=== PATIENT | female | born 1995 | race Caucasian/White ===

== ENCOUNTER 2019-08-26 06:00 | Emergency (ER) | payer BC ==
[2019-08-26 06:11] VITALS: TEMP 97.4
[2019-08-26] MEDS ORDERED: SODIUM CHLORIDE 0.9% 1,000 ML IV STA ×2 (06:36)
[2019-08-26] MEDS ORDERED: PANTOPRAZOLE 40 MG/10 ML VIAL IVP STA (06:36)
[2019-08-26] MEDS ORDERED: KETOROLAC 30 MG/ML 1 ML VIAL IVP STA (06:36)
[2019-08-26] MEDS ORDERED: MORPHINE SULFATE 4 MG/ML SYRINGE IV STA (06:36)
[2019-08-26] MEDS ORDERED: ONDANSETRON 4 MG/2 ML VIAL IVP STA (06:36)
[2019-08-26] MEDS ORDERED: TAMSULOSIN 0.4 MG CAP.ER.24H PO STA (06:38)
--- NOTE | 2019-08-26 06:39 | ED ---
Abdominal Pain HPI - General Chief Complaint: Abdominal Pain Stated Complaint: Kidney Stone Time Seen by Provider: 08/26/19 06:18 Source: patient, RN notes reviewed, old records reviewed Mode of arrival: ambulatory Limitations: no limitations - History of Present Illness Initial Comments: Patient's a 23-year-old female presents emergency department today for evaluation for concern for left-sided flank pain. Symptoms woke her up this morning. Patient states that she's had no fevers or chills. History of kidney stones the past and feels similar to previous kidney stone. Last that she had was 5 years ago. Did not require lithotripsy or stenting. Does not have urologist. - Related Data Previous Rx's Medication Instructions Recorded Ondansetron Odt [Zofran ODT] 4 mg PO Q8HR PRN #15 tab 10/09/15 Cephalexin [Keflex] 500 mg PO Q6HR #28 cap 08/26/19 HYDROcodone/APAP 5-325MG [[place] 1 tab PO Q6HR PRN 3 Days #12 tab 08/26/19 5-325] Ketorolac [Toradol] 10 mg PO Q6HR #12 tab 08/26/19 Ondansetron HCl [Zofran] 4 mg PO Q8H PRN #12 tab 08/26/19 Tamsulosin [Flomax] 0.4 mg PO DAILY #7 cap 08/26/19 Allergies Allergy/AdvReac Type Severity Reaction Status Date / Time Penicillins Allergy Unknown Verified 08/26/19 06:11 Sulfa (Sulfonamide Allergy Unknown Verified 08/26/19 06:11 Antibiotics) Review of Systems ROS Statement: Those systems with pertinent positive or pertinent negative responses have been documented in the HPI. ROS Other: All systems not noted in ROS Statement are negative. Past Medical History Past Medical History: Thyroid Disorder History of Any Multi-Drug Resistant Organisms: None Reported Past Surgical History: No Surgical Hx Reported Past Psychological History: No Psychological Hx Reported Smoking Status: Never smoker Past Alcohol Use History: Rare Past Drug Use History: Marijuana General Exam - General Exam Comments Initial Comments: Alert and oriented 23-year-old female. No significant distress. Limitations: no limitations General appearance: alert, in no apparent distress Head exam: Present: atraumatic Eye exam: Present: normal appearance, PERRL, EOMI. Absent: scleral icterus, conjunctival injection, periorbital swelling ENT exam: Present: normal exam, mucous membranes moist Neck exam: Present: normal inspection. Absent: tenderness, meningismus, lymphadenopathy Respiratory exam: Present: normal lung sounds bilaterally. Absent: respiratory distress, wheezes, rales, rhonchi, stridor Cardiovascular Exam: Present: regular rate, normal rhythm, normal heart sounds. Absent: systolic murmur, diastolic murmur, rubs, gallop, clicks GI/Abdominal exam: Present: soft, tenderness (Left CVA tenderness) Extremities exam: Present: normal inspection, full ROM, normal capillary refill. Absent: tenderness, pedal edema, joint swelling, calf tenderness Back exam: Present: normal inspection Neurological exam: Present: alert, oriented X3, CN II-XII intact Psychiatric exam: Present: normal affect, normal mood Skin exam: Present: warm, dry, intact, normal color. Absent: rash Course Vital Signs 08/26/19 06:09 Temperature 97.4 F L Pulse Rate 81 Respiratory 17 Rate Blood Pressure 137/87 O2 Sat by Pulse 99 Oximetry Medical Decision Making - Medical Decision Making Patient is a 23-year-old female, who presents the ED for concern for left sided flank pain. Onset this morning. History of kidney stones. At this time patient's urinalysis shows significant hematuria and some white blood cells while. Urine culture be completed. Kidney function and blood work was otherwise unremarkable. Patient's underwent CT and pelvis without contrast, there is some concern for some hydronephrosis, left-sided ureter stone measuring possibly 3 mm at the left UVJ. Also some mention of possible appendicolith however Patient is no right-sided tenderness, no clinical concern for appendicitis. Patient at this time was given pain management, IV fluids. On reevaluation she is resting comfortably in bed. Discussed the Patient has had multiple retained renal stones. Discussed she can follow-up with urology and will discharge Patient with pain medicine, Flomax and Toradol. Also for the Patient on a short course of antibiotics. All questions were answered return parameters were discussed. - Lab Data Result diagrams: 08/26/19 06:36 08/26/19 06:36 Lab Results 08/26/19 08/26/19 08/26/19 Range/Units 06:36 06:36 06:36 WBC 10.5 (3.8-10.6) k/uL RBC 5.13 (3.80-5.40) m/uL Hgb 15.4 (11.4-16.0) gm/dL Hct 46.0 (34.0-46.0) % MCV 89.7 (80.0-100.0) fL MCH 29.9 (25.0-35.0) pg MCHC 33.4 (31.0-37.0) g/dL RDW 12.6 (11.5-15.5) % Plt Count 305 (150-450) k/uL Neutrophils % 58 % Lymphocytes % 32 % Monocytes % 4 % Eosinophils % 2 % Basophils % 0 % Neutrophils # 6.1 (1.3-7.7) k/uL Lymphocytes # 3.3 (1.0-4.8) k/uL Monocytes # 0.4 (0-1.0) k/uL Eosinophils # 0.3 (0-0.7) k/uL Basophils # 0.1 (0-0.2) k/uL PT (9.0-12.0) sec INR (<1.2) APTT (22.0-30.0) sec Sodium 137 (137-145) mmol/L Potassium 4.2 (3.5-5.1) mmol/L Chloride 104 (98-107) mmol/L Carbon Dioxide 20 L (22-30) mmol/L Anion Gap 13 mmol/L BUN 13 (7-17) mg/dL Creatinine 0.70 (0.52-1.04) mg/dL Est GFR (CKD-EPI)AfAm >90 (>60 ml/min/1.73 sqM) Est GFR (CKD-EPI)NonAf >90 (>60 ml/min/1.73 sqM) Glucose 144 H (74-99) mg/dL Calcium 9.9 (8.4-10.2) mg/dL Total Bilirubin 0.7 (0.2-1.3) mg/dL AST 20 (14-36) U/L ALT 14 (4-34) U/L Alkaline Phosphatase 69 (38-126) U/L Total Protein 7.9 (6.3-8.2) g/dL Albumin 4.7 (3.5-5.0) g/dL Amylase 43 (30-110) U/L Lipase 87 (23-300) U/L Urine Color Urine Appearance (Clear) Urine pH (5.0-8.0) Ur Specific [place] (1.001-1.035) Urine Protein (Negative) Urine Glucose (UA) (Negative) Urine Ketones (Negative) Urine Blood (Negative) Urine Nitrite (Negative) Urine Bilirubin (Negative) Urine Urobilinogen (<2.0) mg/dL Ur Leukocyte Esterase (Negative) Urine RBC (0-5) /hpf Urine WBC (0-5) /hpf Urine WBC Clumps (None) /hpf Ur Squamous Epith Cells (0-4) /hpf Urine Bacteria (None) /hpf Urine Mucus (None) /hpf Urine Yeast (Budding) (None) /hpf Urine HCG, Qual Not Detected (Not Detectd) 08/26/19 08/26/19 Range/Units 06:36 06:36 WBC (3.8-10.6) k/uL RBC (3.80-5.40) m/uL Hgb (11.4-16.0) gm/dL Hct (34.0-46.0) % MCV (80.0-100.0) fL MCH (25.0-35.0) pg MCHC (31.0-37.0) g/dL RDW (11.5-15.5) % Plt Count (150-450) k/uL Neutrophils % % Lymphocytes % % Monocytes % % Eosinophils % % Basophils % % Neutrophils # (1.3-7.7) k/uL Lymphocytes # (1.0-4.8) k/uL Monocytes # (0-1.0) k/uL Eosinophils # (0-0.7) k/uL Basophils # (0-0.2) k/uL PT 10.0 (9.0-12.0) sec INR 1.0 (<1.2) APTT 22.3 (22.0-30.0) sec Sodium (137-145) mmol/L Potassium (3.5-5.1) mmol/L Chloride (98-107) mmol/L Carbon Dioxide (22-30) mmol/L Anion Gap mmol/L BUN (7-17) mg/dL Creatinine (0.52-1.04) mg/dL Est GFR (CKD-EPI)AfAm (>60 ml/min/1.73 sqM) Est GFR (CKD-EPI)NonAf (>60 ml/min/1.73 sqM) Glucose (74-99) mg/dL Calcium (8.4-10.2) mg/dL Total Bilirubin (0.2-1.3) mg/dL AST (14-36) U/L ALT (4-34) U/L Alkaline Phosphatase (38-126) U/L Total Protein (6.3-8.2) g/dL Albumin (3.5-5.0) g/dL Amylase (30-110) U/L Lipase (23-300) U/L Urine Color Light Red Urine Appearance Cloudy H (Clear) Urine pH 5.5 (5.0-8.0) Ur Specific [place] 1.023 (1.001-1.035) Urine Protein 1+ H (Negative) Urine Glucose (UA) Negative (Negative) Urine Ketones Trace H (Negative) Urine Blood Large H (Negative) Urine Nitrite Negative (Negative) Urine Bilirubin Negative (Negative) Urine Urobilinogen <2.0 (<2.0) mg/dL Ur Leukocyte Esterase Small H (Negative) Urine RBC >182 H (0-5) /hpf Urine WBC 27 H (0-5) /hpf Urine WBC Clumps Many H (None) /hpf Ur Squamous Epith Cells 10 H (0-4) /hpf Urine Bacteria Rare H (None) /hpf Urine Mucus Few H (None) /hpf Urine Yeast (Budding) Rare H (None) /hpf Urine HCG, Qual (Not Detectd) - Radiology Data Radiology results: report reviewed Moderate left hydroureter nephrosis of the proximal and mid left ureter. However distal left ureter is nondistended He actually followed. It is possible 3 mm distal left ureter calculus proximal to left UVJ versus phlebolith. Punctate calcification near the distal appendix which could be appendicolith are located within adjacent small bowel. Appendix cannot be from the small bowel with for contrast. No secondary findings for acute appendicitis. Bilateral nonobstructing renal colliculi. Follicular cystic changes in both ovaries. Disposition Clinical Impression: Ureteral calculus, left Disposition: HOME SELF-CARE Condition: Good Instructions (If sedation given, give patient instructions): Ureteral Stones (ED) Additional Instructions: Please use medication as discussed. Please follow up with family doctor if symptoms have not improved over the next two days. Please return to the emergency room if your symptoms increase or worsen or for any other concerns. Prescriptions: Tamsulosin [Flomax] 0.4 mg PO DAILY #7 cap Cephalexin [Keflex] 500 mg PO Q6HR #28 cap HYDROcodone/APAP 5-325MG [[place] 5-325] 1 tab PO Q6HR PRN 3 Days #12 tab PRN Reason: Pain Ketorolac [Toradol] 10 mg PO Q6HR #12 tab Ondansetron HCl [Zofran] 4 mg PO Q8H PRN #12 tab PRN Reason: Nausea And Vomiting Is patient prescribed a controlled substance at d/c from ED?: Yes If prescribed controlled substance>3 days was MAPS reviewed?: Prescribed <3 Days If opioid is for acute pain is fill amount 7 days or less?: Yes If Rx opioid, was Start Talking consent form obtained?: Yes Referrals: None,Stated [Primary Care Provider] - 1-2 days Darshan Phillips MD [STAFF PHYSICIAN] - 1-2 days Time of Disposition: 08:22
[2019-08-26 06:50] LABS: Basophils # (A) 0.1 k/uL (0-0.2); Basophils % (A) 0 %; Eosinophils # (A) 0.3 k/uL (0-0.7); Eosinophils % (A) 2 %; HGB 15.4 gm/dL (11.4-16.0); Lymphocytes # (A) 3.3 k/uL (1.0-4.8); Lymphocytes % (A) 32 %; MCH 29.9 pg (25.0-35.0); MCHC 33.4 g/dL (31.0-37.0); MCV 89.7 fL (80.0-100.0); Monocytes # (A) 0.4 k/uL (0-1.0); Monocytes % (A) 4 %; Neutrophils # (A) 6.1 k/uL (1.3-7.7); Neutrophils % (A) 58 %; Platelet Count 305 k/uL (150-450); RBC 5.13 m/uL (3.80-5.40); RDW 12.6 % (11.5-15.5); WBC 10.5 k/uL (3.8-10.6)
[2019-08-26 06:58] LABS: Appearance,Urine Cloudy (Clear); Bacteria,Urine Rare /hpf; Bilirubin,Urine Negative (Negative); Blood,Urine Large (Negative); Budding Yeast,Urine Rare /hpf; Color,Urine Light Red; Glucose,Urine (UA) Negative (Negative); Ketones,Urine Trace (Negative); Leukocyte Esterase,Urine Small (Negative); Mucus,Urine Few /hpf; Nitrite,Urine Negative (Negative); PH, Urine 5.5 (5.0-8.0); Protein,Urine 1+ (Negative); RBC,Urine >182 /hpf (0-5); Specific Gravity,Urine 1.023 (1.001-1.035); Squamous Epithelial Cell,Urine 10 /hpf (0-4); Urobilinogen,Urine <2.0 mg/dL (<2.0); WBC,Urine 27 /hpf (0-5)
[2019-08-26 07:02] LABS: ALT 14 U/L (4-34); AST 20 U/L (14-36); African American GFR (CKD) >90 (>60 ml/min/1.73 sqM); Albumin 4.7 g/dL (3.5-5.0); Alkaline Phosphatase 69 U/L (38-126); Amylase 43 U/L (30-110); Anion Gap 13 mmol/L; Blood Urea Nitrogen 13 mg/dL (7-17); Calcium 9.9 mg/dL (8.4-10.2); Carbon Dioxide 20 mmol/L (22-30); Chloride 104 mmol/L (98-107); Glucose 144 mg/dL (74-99); Non-African American GFR(CKD) >90 (>60 ml/min/1.73 sqM); Partial Thromboplastin Time 22.3 sec (22.0-30.0); Potassium 4.2 mmol/L (3.5-5.1); Sodium 137 mmol/L (137-145); Total Bilirubin 0.7 mg/dL (0.2-1.3); Total Protein 7.9 g/dL (6.3-8.2)
--- NOTE | 2019-08-26 07:48 | CT ---
EXAMINATION TYPE: CT abdomen pelvis wo con DATE OF EXAM: 08/26/2019 COMPARISON: 11/20/2012 CT HISTORY: Kidney stone CT DLP: 447 mGycm Automated exposure control for dose reduction was used. TECHNIQUE: Helical acquisition of images was performed from the lung bases through the pelvis. FINDINGS: LUNG BASES: There is a 3 mm solid right basilar pulmonary nodule on image 1 of series 204 that is inc ompletely visualized. This is not seen on the prior of 11/20/2012, possibly due to slice selection. LIVER/GB: Unremarkable unenhanced morphology of the liver. No radiopaque gallstones. PANCREAS: No ductal dilatation. SPLEEN: No splenomegaly. ADRENALS: No nodularity or thickening. KIDNEYS: There is mild to moderate left hydroureteronephrosis within the proximal and mid left ureter . The distal left ureter is nondilated. There are multiple phleboliths within the pelvis. On image 75 these appear stable from the prior of 2012. Just cranial to this on image 74 there is a possible lef t ureteral calculus measuring 3 mm although the distal left ureter cannot be followed. No calculi are seen within the urinary bladder. Punctate calculus is seen within the left mid pole measuring 1 mm o n image 64 of the coronal series. There are at least 6 right renal calculi measuring up to 4 mm that are nonobstructing. FREE AIR: No free air is visualized ADENOPATHY: No greater than 1 cm short axis lymph nodes in the abdomen nor pelvis, given the limitat ion of lack of intravenous contrast. REPRODUCTIVE ORGANS: Bilateral follicular and/or cystic changes of the ovaries. Fluid-filled endometr ium and endocervical canal. OSSEOUS STRUCTURES: No significant abnormality is seen. BOWEL: The proximal appendix appears nondilated and air-filled. Punctate calcification on image 67 c ould be within the distal aspect of the appendix or adjacent small bowel. Suboptimal visualization of the bowel due to lack of oral contrast. No right lower quadrant focal fat stranding is seen. Mild de gree colonic fecal stasis. No evidence of bowel obstruction. No dilated large or small bowel. IMPRESSION: 1. MODERATE LEFT HYDROURETERONEPHROSIS OF THE PROXIMAL AND MID LEFT URETER. HOWEVER THE DISTAL LEFT U RETER IS NONDISTENDED AND CANNOT BE ACCURATELY FOLLOWED. THERE IS A POSSIBLE 3 MM DISTAL LEFT URETERA L CALCULUS JUST PROXIMAL TO THE LEFT URETEROVESICULAR JUNCTION VERSUS PHLEBOLITH. 2. PUNCTATE CALCIFICATION NEAR THE DISTAL APPENDIX, WHICH COULD BE AN APPENDICOLITH OR LOCATED WITHIN ADJACENT SMALL BOWEL. THE APPENDIX CANNOT BE FROM SMALL BOWEL IN THE PELVIS WITH LACK OF O RAL CONTRAST. NO SECONDARY EVIDENCE OF ACUTE APPENDICITIS. 3. BILATERAL NONOBSTRUCTING RENAL CALCULI. 4. FOLLICULAR AND/OR CYSTIC CHANGES OF BOTH OVARIES.
--- NOTE | 2019-08-26 07:57 | XR ---
EXAMINATION TYPE: XR KUB DATE OF EXAM: 08/26/2019 7:44 AM CLINICAL HISTORY: Left flank pain history nephrolithiasis TECHNIQUE: Single upright image of the abdomen is obtained. COMPARISON: CT of the same date. FINDINGS: As seen on the CT of the same date there are multiple right-sided renal calculi better desc ribed on the CT of the same date. No dilated large small bowel. No pneumoperitoneum. Left-sided punct ate renal calculus is not well visualized. Phleboliths are seen within the pelvis. Osseous structures are intact. Lung bases are well aerated. Mild dextroscoliosis of the lumbar spine that may be positi onal. IMPRESSION: Multiple right-sided renal calculi.
[2019-08-26] MEDS ORDERED: diphenhydrAMINE 50 MG/ML 1 ML VIAL IVP STA (08:14)
[2019-08-26] MEDS ORDERED: METOCLOPRAMIDE 5 MG/ML 2 ML VIAL IVP STA (08:14)
[2019-08-26] MEDS ORDERED: HYDROmorphone 1 MG/ML 1 ML SYRINGE IVP STA (08:21)
[2019-08-26 10:27] VITALS: BP 111/68; PULSE 720; RESP 20
== END 2019-08-26 10:27 | disposition home or self-care (01) ==
LOC: EC 06:00
DX: N20.1 Calculus of ureter (principal); Z88.0 Allergy status to penicillin; Z88.2 Allergy status to sulfonamides
CPT/HCPCS: 36415; 80053; 82150; 83690; 85025; 85610; 85730; 81001; 81025; 87086; 74018; 74176; 99285; 96374; 96375 ×6; 96361 ×3; J2270; J1200; J2765; J2405; J1885; J1170; C9113

== ENCOUNTER 2020-04-11 09:49 | Emergency (ER) | payer BC ==
[2020-04-11 10:05] VITALS: RESP 18; TEMP 97.6
[2020-04-11] MEDS ORDERED: ONDANSETRON 4 MG/2 ML VIAL IVP STA (10:27)
[2020-04-11] MEDS ORDERED: MORPHINE SULFATE 2 MG/ML SYRINGE IVP STA (10:27)
--- NOTE | 2020-04-11 10:39 | ED ---
Abdominal Pain HPI - General Chief Complaint: Abdominal Pain Stated Complaint: Kidney stone Time Seen by Provider: 04/11/20 10:22 Source: patient Mode of arrival: ambulatory Limitations: no limitations - History of Present Illness Initial Comments: 24-year-old female with history of kidney stones presents today for chief complaint of right flank pain and vomiting that occurred this morning. She states while driving she's had onset of pain that caused her to vomit. Patient states that it felt identical to instead a kidney stone in the past she states shortly after that and upon arriving to the emergency department she states that the pain resolved. She states she feels silly for being here now. Patient states that she may have noted some hematuria earlier this week. She denies any fevers chills general malaise uncontrolled vomiting she denies or additional complaints upon arrival patient appears nontoxic in no acute distress, stating she does not want IV or further workup aside from UA. - Related Data Previous Rx's Medication Instructions Recorded Ondansetron Odt [Zofran ODT] 4 mg PO Q8HR PRN #15 tab 10/09/15 Cephalexin [Keflex] 500 mg PO Q6HR #28 cap 08/26/19 HYDROcodone/APAP 5-325MG [[place] 1 tab PO Q6HR PRN 3 Days #12 tab 08/26/19 5-325] Ketorolac [Toradol] 10 mg PO Q6HR #12 tab 08/26/19 Ondansetron HCl [Zofran] 4 mg PO Q8H PRN #12 tab 08/26/19 Tamsulosin [Flomax] 0.4 mg PO DAILY #7 cap 08/26/19 Ketorolac [Toradol] 10 mg PO Q8HR PRN 1 Days #3 tab 04/11/20 Allergies Allergy/AdvReac Type Severity Reaction Status Date / Time Penicillins Allergy Unknown Verified 04/11/20 10:02 Sulfa (Sulfonamide Allergy Unknown Verified 04/11/20 10:02 Antibiotics) Review of Systems ROS Statement: Those systems with pertinent positive or pertinent negative responses have been documented in the HPI. ROS Other: All systems not noted in ROS Statement are negative. Past Medical History Past Medical History: Thyroid Disorder Additional Past Medical History / Comment(s): kidney stones History of Any Multi-Drug Resistant Organisms: None Reported Past Surgical History: No Surgical Hx Reported Past Psychological History: No Psychological Hx Reported Smoking Status: Current every day smoker Past Alcohol Use History: None Reported Past Drug Use History: Marijuana General Exam - General Exam Comments Initial Comments: General: The patient is awake and alert, in no distress Eye: Pupils are equal, round and reactive to light, extra-ocular movements are intact. No nystagmus. There is normal conjunctiva bilaterally. No signs of icterus. Cardiovascular: There is a regular rate and rhythm. No murmur, rub or gallop is appreciated. Respiratory: Lungs are clear to auscultation, respirations are non-labored, breath sounds are equal. No wheezes, stridor, rales, or rhonchi. Gastrointestinal: Soft, non-distended, non-tender abdomen without masses or organomegaly noted. There is no rebound or guarding present. No CVA tenderness. Musculoskeletal: Normal ROM, no tenderness. Strength 5/5. Sensation intact. Pulses equal bilaterally 2+. Neurological: A&O x 3. CN II-XII intact grossly, There are no obvious motor or sensory deficits. Coordination appears grossly intact. Speech is normal. Skin: Skin is warm and dry and no rashes or lesions are noted. Psychiatric: Cooperative, appropriate mood & affect, normal judgment. Limitations: no limitations Course Vital Signs 04/11/20 04/11/20 10:02 12:27 Temperature 97.6 F 97.6 F Pulse Rate 77 80 Respiratory 18 18 Rate Blood Pressure 99/63 101/67 O2 Sat by Pulse 100 100 Oximetry - Reevaluation(s) Reevaluation #1: Upon initial history taking patient states that statse she thinks she can just go home because pain is gone as wlel as nausea. 04/11/20 Medical Decision Making - Medical Decision Making UA consistent with what would be found with recently passed stone there was what appeared to be a stone in the sample itself .HCG (-). Patient is to f/u with urology. She does not appear toxic. Afebrile. Patient agreeable to care plan and discharge. Case discussed with attending. - Lab Data Lab Results 04/11/20 04/11/20 Range/Units 10:50 10:50 Urine Color Yellow Urine Appearance Clear (Clear) Urine pH 5.5 (5.0-8.0) Ur Specific [place] 1.021 (1.001-1.035) Urine Protein Negative (Negative) Urine Glucose (UA) Negative (Negative) Urine Ketones 1+ H (Negative) Urine Blood Moderate H (Negative) Urine Nitrite Negative (Negative) Urine Bilirubin Negative (Negative) Urine Urobilinogen <2.0 (<2.0) mg/dL Ur Leukocyte Esterase Negative (Negative) Urine RBC 35 H (0-5) /hpf Urine WBC 2 (0-5) /hpf Ur Squamous Epith Cells 1 (0-4) /hpf Urine Bacteria Rare H (None) /hpf Urine Mucus Few H (None) /hpf Urine HCG, Qual Not Detected (Not Detectd) Disposition Clinical Impression: Right flank pain, Hx of renal calculi Disposition: HOME SELF-CARE Condition: Good Instructions (If sedation given, give patient instructions): Kidney Stones (ED) Additional Instructions: Please use medication as discussed. Please follow-up with family doctor in the next 2 days, urology for frequent stones in next week. Please return to emergency room if the symptoms increase or worsen or for any other concerns. Prescriptions: Ketorolac [Toradol] 10 mg PO Q8HR PRN 1 Days #3 tab PRN Reason: Pain Is patient prescribed a controlled substance at d/c from ED?: No Referrals: None,Stated [Primary Care Provider] - 1-2 days Amos Espana MD [STAFF PHYSICIAN] - 1-2 days Time of Disposition: 10:39
[2020-04-11 11:30] LABS: Appearance,Urine Clear (Clear); Bacteria,Urine Rare /hpf; Bilirubin,Urine Negative (Negative); Blood,Urine Moderate (Negative); Color,Urine Yellow; Glucose,Urine (UA) Negative (Negative); Ketones,Urine 1+ (Negative); Leukocyte Esterase,Urine Negative (Negative); Mucus,Urine Few /hpf; Nitrite,Urine Negative (Negative); PH, Urine 5.5 (5.0-8.0); Protein,Urine Negative (Negative); RBC,Urine 35 /hpf (0-5); Specific Gravity,Urine 1.021 (1.001-1.035); Squamous Epithelial Cell,Urine 1 /hpf (0-4); Urobilinogen,Urine <2.0 mg/dL (<2.0); WBC,Urine 2 /hpf (0-5)
[2020-04-11 12:37] VITALS: BP 101/67; PULSE 80
== END 2020-04-11 12:37 | disposition home or self-care (01) ==
LOC: EC 09:49
DX: R10.9 Unspecified abdominal pain (principal); F17.200 Nicotine dependence, unspecified, uncomplicated; Z88.0 Allergy status to penicillin; Z88.2 Allergy status to sulfonamides; Z87.442 Personal history of urinary calculi
CPT/HCPCS: 81001; 81025; 99284

== ENCOUNTER 2020-09-16 08:34 | Emergency (ER) | payer BC, OTHER ==
[2020-09-16 08:41] VITALS: TEMP 98.9
[2020-09-16] MEDS ORDERED: KETOROLAC 15 MG/ML 1 ML VIAL IVP STA ×2 (08:50→09:42)
[2020-09-16] MEDS ORDERED: HYDROmorphone 0.5 MG/0.5 ML SYRINGE IVP STA ×2 (08:50→11:19)
[2020-09-16] MEDS ORDERED: ONDANSETRON 4 MG/2 ML VIAL IVP STA (08:50)
[2020-09-16] MEDS ORDERED: SODIUM CHLORIDE 0.9% 2,000 ML IV STA (08:50)
--- NOTE | 2020-09-16 09:22 | ED ---
General Adult HPI - General Chief complaint: Urogenital Stated complaint: possible kidney stones Time Seen by Provider: 09/16/20 08:41 Source: patient, family, RN notes reviewed Mode of arrival: ambulatory Limitations: no limitations - History of Present Illness Initial comments: 24-year-old female presents emergency Department chief complaint right flank pain. Patient states started a few days ago. Patient was seen in urgent care yesterday was noted to have blood in her urine. Patient was given Azo. Patient states that she does have a history of kidney stones. Patient states pain seems similar. Patient states pain wraps around she does have some urinary frequency with no significant dysuria. Patient denies fevers chills she doesn't nausea and vomiting. - Related Data Previous Rx's Medication Instructions Recorded Ibuprofen [Motrin] 600 mg PO Q8HR PRN #20 tab 09/16/20 Tamsulosin [Flomax] 0.4 mg PO DAILY #7 cap 09/16/20 Allergies Allergy/AdvReac Type Severity Reaction Status Date / Time Penicillins Allergy Unknown Verified 09/16/20 09:43 Sulfa (Sulfonamide Allergy Unknown Verified 09/16/20 09:43 Antibiotics) Review of Systems ROS Statement: Those systems with pertinent positive or pertinent negative responses have been documented in the HPI. ROS Other: All systems not noted in ROS Statement are negative. Past Medical History Past Medical History: Thyroid Disorder Additional Past Medical History / Comment(s): kidney stones History of Any Multi-Drug Resistant Organisms: None Reported Past Surgical History: No Surgical Hx Reported Past Psychological History: No Psychological Hx Reported Smoking Status: Never smoker Past Alcohol Use History: None Reported Past Drug Use History: Marijuana General Exam Limitations: no limitations General appearance: alert, in no apparent distress Head exam: Present: atraumatic, normocephalic, normal inspection Eye exam: Present: normal appearance, PERRL, EOMI. Absent: scleral icterus, conjunctival injection, periorbital swelling ENT exam: Present: normal exam, mucous membranes moist Neck exam: Present: normal inspection, full ROM. Absent: tenderness, meningismus, lymphadenopathy Respiratory exam: Present: normal lung sounds bilaterally. Absent: respiratory distress, wheezes, rales, rhonchi, stridor Cardiovascular Exam: Present: regular rate, normal rhythm, normal heart sounds. Absent: systolic murmur, diastolic murmur, rubs, gallop, clicks GI/Abdominal exam: Present: soft, tenderness (Minimal right), normal bowel sounds. Absent: distended, guarding, rebound, rigid Back exam: Present: CVA tenderness (R). Absent: CVA tenderness (L) Skin exam: Present: warm, dry, intact, normal color. Absent: rash Course Vital Signs 09/16/20 09/16/20 08:37 10:42 Temperature 98.9 F Pulse Rate 74 86 Respiratory 18 16 Rate Blood Pressure 123/88 123/86 O2 Sat by Pulse 99 99 Oximetry - Reevaluation(s) Reevaluation #1: 09/16/20 09:[address] order a [address] of the abdomen pelvis along with lab work. Patient told nurse that she does not want any imaging secondary to not having insurance. Medical Decision Making - Medical Decision Making CT reviewed shows evidence of a 3 mm ureteral stone. Patient lab reviewed no acute male urinalysis shows hematuria, nitrite positive though this is from patient taken Azo. Patient had no nitrates history on urinalysis. Patient is currently on antibiotics. Patient is afebrile no concerns for septic stone. Patient will be discharged with Flomax, antiemetics, pain medications. - Lab Data Result diagrams: 09/16/20 09:07 09/16/20 09:07 Lab Results 09/16/20 09/16/20 09/16/20 Range/Units 09:07 09:07 09:07 WBC 8.3 (3.8-10.6) k/uL RBC 4.68 (3.80-5.40) m/uL Hgb 14.9 (11.4-16.0) gm/dL Hct 43.4 (34.0-46.0) % MCV 92.6 (80.0-100.0) fL MCH 31.8 (25.0-35.0) pg MCHC 34.3 (31.0-37.0) g/dL RDW 12.2 (11.5-15.5) % Plt Count 242 (150-450) k/uL MPV 7.3 Neutrophils % 71 % Lymphocytes % 20 % Monocytes % 6 % Eosinophils % 2 % Basophils % 0 % Neutrophils # 5.9 (1.3-7.7) k/uL Lymphocytes # 1.7 (1.0-4.8) k/uL Monocytes # 0.5 (0-1.0) k/uL Eosinophils # 0.1 (0-0.7) k/uL Basophils # 0.0 (0-0.2) k/uL Sodium (137-145) mmol/L Potassium (3.5-5.1) mmol/L Chloride (98-107) mmol/L Carbon Dioxide (22-30) mmol/L Anion Gap mmol/L BUN (7-17) mg/dL Creatinine (0.52-1.04) mg/dL Est GFR (CKD-EPI)AfAm (>60 ml/min/1.73 sqM) Est GFR (CKD-EPI)NonAf (>60 ml/min/1.73 sqM) Glucose (74-99) mg/dL Calcium (8.4-10.2) mg/dL Total Bilirubin (0.2-1.3) mg/dL AST (14-36) U/L ALT (4-34) U/L Alkaline Phosphatase (38-126) U/L Total Protein (6.3-8.2) g/dL Albumin (3.5-5.0) g/dL Lipase (23-300) U/L Urine Color Dark Brown Urine Appearance Cloudy H (Clear) Urine pH 6.0 (5.0-8.0) Ur Specific [place] 1.013 (1.001-1.035) Urine Protein Trace H (Negative) Urine Glucose (UA) Negative (Negative) Urine Ketones Negative (Negative) Urine Blood Large H (Negative) Urine Nitrite Positive H (Negative) Urine Bilirubin Negative (Negative) Urine Urobilinogen <2.0 (<2.0) mg/dL Ur Leukocyte Esterase Negative (Negative) Urine RBC 30 H (0-5) /hpf Urine WBC 7 H (0-5) /hpf Ur Squamous Epith Cells 10 H (0-4) /hpf Urine Bacteria Occasional H (None) /hpf Urine Mucus Occasional H (None) /hpf Urine HCG, Qual Not Detected (Not Detectd) 09/16/20 Range/Units 09:07 WBC (3.8-10.6) k/uL RBC (3.80-5.40) m/uL Hgb (11.4-16.0) gm/dL Hct (34.0-46.0) % MCV (80.0-100.0) fL MCH (25.0-35.0) pg MCHC (31.0-37.0) g/dL RDW (11.5-15.5) % Plt Count (150-450) k/uL MPV Neutrophils % % Lymphocytes % % Monocytes % % Eosinophils % % Basophils % % Neutrophils # (1.3-7.7) k/uL Lymphocytes # (1.0-4.8) k/uL Monocytes # (0-1.0) k/uL Eosinophils # (0-0.7) k/uL Basophils # (0-0.2) k/uL Sodium 139 (137-145) mmol/L Potassium 3.9 (3.5-5.1) mmol/L Chloride 105 (98-107) mmol/L Carbon Dioxide 22 (22-30) mmol/L Anion Gap 12 mmol/L BUN 10 (7-17) mg/dL Creatinine 0.64 (0.52-1.04) mg/dL Est GFR (CKD-EPI)AfAm >90 (>60 ml/min/1.73 sqM) Est GFR (CKD-EPI)NonAf >90 (>60 ml/min/1.73 sqM) Glucose 114 H (74-99) mg/dL Calcium 9.5 (8.4-10.2) mg/dL Total Bilirubin 0.5 (0.2-1.3) mg/dL AST 22 (14-36) U/L ALT 14 (4-34) U/L Alkaline Phosphatase 55 (38-126) U/L Total Protein 7.6 (6.3-8.2) g/dL Albumin 4.6 (3.5-5.0) g/dL Lipase 71 (23-300) U/L Urine Color Urine Appearance (Clear) Urine pH (5.0-8.0) Ur Specific [place] (1.001-1.035) Urine Protein (Negative) Urine Glucose (UA) (Negative) Urine Ketones (Negative) Urine Blood (Negative) Urine Nitrite (Negative) Urine Bilirubin (Negative) Urine Urobilinogen (<2.0) mg/dL Ur Leukocyte Esterase (Negative) Urine RBC (0-5) /hpf Urine WBC (0-5) /hpf Ur Squamous Epith Cells (0-4) /hpf Urine Bacteria (None) /hpf Urine Mucus (None) /hpf Urine HCG, Qual (Not Detectd) Disposition Clinical Impression: Right ureteral calculus Disposition: HOME SELF-CARE Condition: Stable Instructions (If sedation given, give patient instructions): Kidney Stones (ED) Additional Instructions: Please return to the Emergency Department if symptoms worsen or any other concerns. Prescriptions: Tamsulosin [Flomax] 0.4 mg PO DAILY #7 cap Ibuprofen [Motrin] 600 mg PO Q8HR PRN #20 tab PRN Reason: Pain Is patient prescribed a controlled substance at d/c from ED?: No Referrals: None,Stated [Primary Care Provider] - 1-2 days Amos Espana MD [STAFF PHYSICIAN] - 1-2 days Time of Disposition: 11:13
[2020-09-16 09:23] LABS: Basophils % (A) 0 %; Eosinophils # (A) 0.1 k/uL (0-0.7); Eosinophils % (A) 2 %; HCT 43.4 % (34.0-46.0); HGB 14.9 gm/dL (11.4-16.0); Lymphocytes # (A) 1.7 k/uL (1.0-4.8); Lymphocytes % (A) 20 %; MCH 31.8 pg (25.0-35.0); MCHC 34.3 g/dL (31.0-37.0); MCV 92.6 fL (80.0-100.0); Mean Platelet Volume 7.3; Monocytes # (A) 0.5 k/uL (0-1.0); Monocytes % (A) 6 %; Neutrophils # (A) 5.9 k/uL (1.3-7.7); Neutrophils % (A) 71 %; Platelet Count 242 k/uL (150-450); RBC 4.68 m/uL (3.80-5.40); RDW 12.2 % (11.5-15.5); WBC 8.3 k/uL (3.8-10.6)
[2020-09-16 09:31] LABS: Appearance,Urine Cloudy (Clear); Bacteria,Urine Occasional /hpf; Bilirubin,Urine Negative (Negative); Blood,Urine Large (Negative); Color,Urine Dark Brown; Glucose,Urine (UA) Negative (Negative); Ketones,Urine Negative (Negative); Leukocyte Esterase,Urine Negative (Negative); Mucus,Urine Occasional /hpf; Nitrite,Urine Positive (Negative); Protein,Urine Trace (Negative); RBC,Urine 30 /hpf (0-5); Specific Gravity,Urine 1.013 (1.001-1.035); Squamous Epithelial Cell,Urine 10 /hpf (0-4); Urobilinogen,Urine <2.0 mg/dL (<2.0); WBC,Urine 7 /hpf (0-5)
[2020-09-16 09:33] LABS: ALT 14 U/L (4-34); AST 22 U/L (14-36); African American GFR (CKD) >90 (>60 ml/min/1.73 sqM); Albumin 4.6 g/dL (3.5-5.0); Alkaline Phosphatase 55 U/L (38-126); Anion Gap 12 mmol/L; Blood Urea Nitrogen 10 mg/dL (7-17); Calcium 9.5 mg/dL (8.4-10.2); Carbon Dioxide 22 mmol/L (22-30); Chloride 105 mmol/L (98-107); Glucose 114 mg/dL (74-99); Lipase 71 U/L (23-300); Non-African American GFR(CKD) >90 (>60 ml/min/1.73 sqM); Potassium 3.9 mmol/L (3.5-5.1); Sodium 139 mmol/L (137-145); Total Bilirubin 0.5 mg/dL (0.2-1.3); Total Protein 7.6 g/dL (6.3-8.2)
[2020-09-16] MEDS ORDERED: HYDROmorphone 1 MG/ML 1 ML SYRINGE IVP STA (09:42)
[2020-09-16] MEDS ORDERED: TAMSULOSIN 0.4 MG CAP.ER.24H PO STA (09:42)
[2020-09-16] MEDS ORDERED: ORPHENADRINE 30 MG/ML 2 ML VIAL IVP STA (10:29)
[2020-09-16 10:47] VITALS: BP 123/86; PULSE 86; RESP 16
--- NOTE | 2020-09-16 11:10 | CT ---
EXAMINATION TYPE: CT abdomen pelvis wo con DATE OF EXAM: 09/16/2020 COMPARISON: 08/26/2019 HISTORY: 24-year-old female Right flank pain CT DLP: 372 mGycm. Automated exposure control for dose reduction was used. TECHNIQUE: Contiguous axial scanning of the abdomen and pelvis without IV contrast. Coronal and sagit ryan reconstructions performed. FINDINGS: Heart size without pericardial effusion. Lung bases clear without pleural effusion. Liver mildly enlarged at 18.8 cm. Noncontrast appearance of the gallbladder, adrenal glands, spleen, and pancreas shows no gross abnorm ality. A few punctate nonobstructive left renal calculi measuring up to 2 mm. Approximately four calculi are noted. More numerous nonobstructive calculi in the right kidney, approximately 10 measuring up to 4 mm. Ther e is mild right-sided hydronephrosis and a few calcifications in the right side of the pelvis suggest ing phleboliths. One of these measures 3 mm, axial image 114 and coronal image 66 suspicious for a di stal ureteral calculus. No dilated small bowel, free fluid, or free air. No mesenteric or retroperitoneal lymphadenopathy. Scattered mild stool. Segments of a normal appendix visualized. Mild diverticular change in the sigm oid colon. No pericolonic inflammation. Bladder is nondistended. Uterus anteverted. Both ovaries visualized with follicular change. No abnorm al fluid collection in the pelvis or pelvic lymphadenopathy. Bones: No osseous destructive process. IMPRESSION: 1. A 3 mm distal right ureteral calculus with mild obstructive uropathy. 2. Additional bilateral nonobstructive renal calculi, more numerous on the right measuring up to 4 m m.
[2020-09-16] MEDS ORDERED: ACET/COD 300 MG/30 MG STARTER PACK 6 TAB BTL PO STA (11:13)
[2020-09-16] MEDS ORDERED: ONDANSETRON 4 MG ODT STARTER PACK 2 TAB BTL PO STA (11:13)
== END 2020-09-16 11:58 | disposition home or self-care (01) ==
LOC: EC 08:34
DX: N20.2 Calculus of kidney with calculus of ureter (principal); F12.90 Cannabis use, unspecified, uncomplicated; Z87.442 Personal history of urinary calculi
CPT/HCPCS: 36415; 80053; 83690; 85025; 81001; 81025; 74176; 99284; 96374; 96375; 96376; 96361; J2360; J2405; J1170 ×2; J1885; S0119

== ENCOUNTER 2022-02-13 12:12 | Emergency (ER) | payer BC ==
[2022-02-13 12:17] VITALS: TEMP 97.5
[2022-02-13] MEDS ORDERED: KETOROLAC 15 MG/ML 1 ML VIAL IVP STA (12:53)
[2022-02-13] MEDS ORDERED: ONDANSETRON 4 MG/2 ML VIAL IVP STA (12:53)
[2022-02-13 13:12] LABS: Basophils # (A) 0.1 k/uL (0-0.2); Basophils % (A) 0 %; Eosinophils # (A) 0.2 k/uL (0-0.7); Eosinophils % (A) 2 %; HCT 42.6 % (34.0-46.0); HGB 13.7 gm/dL (11.4-16.0); Lymphocytes % (A) 27 %; MCH 30.6 pg (25.0-35.0); MCHC 32.1 g/dL (31.0-37.0); MCV 95.1 fL (80.0-100.0); Mean Platelet Volume 8.3; Monocytes # (A) 0.8 k/uL (0-1.0); Monocytes % (A) 5 %; Neutrophils # (A) 9.3 k/uL (1.3-7.7); Neutrophils % (A) 63 %; Platelet Count 330 k/uL (150-450); RBC 4.48 m/uL (3.80-5.40); RDW 12.4 % (11.5-15.5); WBC 14.6 k/uL (3.8-10.6)
[2022-02-13 13:22] LABS: ALT 17 U/L (4-34); AST 22 U/L (14-36); African American GFR (CKD) >90 (>60 ml/min/1.73 sqM); Albumin 4.7 g/dL (3.5-5.0); Alkaline Phosphatase 54 U/L (38-126); Anion Gap 12 mmol/L; Blood Urea Nitrogen 9 mg/dL (7-17); Calcium 9.9 mg/dL (8.4-10.2); Carbon Dioxide 21 mmol/L (22-30); Chloride 106 mmol/L (98-107); Glucose 109 mg/dL (74-99); Lipase 60 U/L (23-300); Non-African American GFR(CKD) >90 (>60 ml/min/1.73 sqM); Potassium 3.6 mmol/L (3.5-5.1); Sodium 139 mmol/L (137-145); Total Bilirubin 0.5 mg/dL (0.2-1.3); Total Protein 7.8 g/dL (6.3-8.2)
--- NOTE | 2022-02-13 13:24 | ED ---
Abdominal Pain HPI - General Chief Complaint: Abdominal Pain Stated Complaint: near syncope, abd pain Time Seen by Provider: 02/13/22 12:37 Source: patient Mode of arrival: ambulatory Limitations: no limitations, physical limitation - History of Present Illness Initial Comments: 26-year-old female with past medical history of renal stones presents emergency department with lower abdominal pain, nausea, vomiting, diarrhea and vaginal bleeding. She started her menstrual cycle this morning when she states would be normal timing for her. Has very light vaginal bleeding however has significant pain. Did not take anything at home for her symptoms before coming in. Pain is so significant that it causes her to vomit. She denies fevers. No additional vaginal discharge. Denies dysuria, hematuria or difficult voiding. No black or bloody stools. Does have history of ovarian cysts. Denies history of . Unsure if she is currently . No abdominal surgeries. No other alleviating, precipitating or modifying doctors - Related Data Previous Rx's Medication Instructions Recorded Ibuprofen [Motrin] 600 mg PO Q8HR PRN #20 tab 09/16/20 Tamsulosin [Flomax] 0.4 mg PO DAILY #7 cap 09/16/20 Cephalexin [Keflex] 500 mg PO BID 1 Days #14 cap 02/13/22 Mefenamic Acid 250 mg PO Q6HR PRN #30 cap 02/13/22 Ondansetron Odt [Zofran Odt] 4 mg PO Q8HR PRN #20 tab 02/13/22 Allergies Allergy/AdvReac Type Severity Reaction Status Date / Time Penicillins Allergy Unknown Verified 02/13/22 12:17 Sulfa (Sulfonamide Allergy Unknown Verified 02/13/22 12:17 Antibiotics) Review of Systems ROS Statement: Those systems with pertinent positive or pertinent negative responses have been documented in the HPI. ROS Other: All systems not noted in ROS Statement are negative. Past Medical History Past Medical History: Thyroid Disorder Additional Past Medical History / Comment(s): kidney stones History of Any Multi-Drug Resistant Organisms: None Reported Past Surgical History: No Surgical Hx Reported Past Psychological History: No Psychological Hx Reported Smoking Status: Never smoker Past Alcohol Use History: None Reported Past Drug Use History: None Reported, Marijuana General Exam Limitations: no limitations, physical limitation General appearance: alert, in no apparent distress Head exam: Present: atraumatic, normocephalic, normal inspection Eye exam: Present: normal appearance, PERRL, EOMI. Absent: scleral icterus, conjunctival injection, periorbital swelling ENT exam: Present: normal exam, mucous membranes moist Neck exam: Present: normal inspection. Absent: tenderness, meningismus, lymphadenopathy Respiratory exam: Present: normal lung sounds bilaterally. Absent: respiratory distress, wheezes, rales, rhonchi, stridor Cardiovascular Exam: Present: regular rate, normal rhythm, normal heart sounds. Absent: systolic murmur, diastolic murmur, rubs, gallop, clicks GI/Abdominal exam: Present: soft, tenderness (suprapubic), normal bowel sounds. Absent: distended, guarding, rebound, rigid Extremities exam: Present: normal inspection, full ROM, normal capillary refill. Absent: tenderness, pedal edema, joint swelling, calf tenderness Back exam: Present: normal inspection Neurological exam: Present: alert, oriented X3, CN II-XII intact Psychiatric exam: Present: normal affect, normal mood Skin exam: Present: warm, dry, intact, normal color. Absent: rash Course Vital Signs 02/13/22 02/13/22 12:15 14:51 Temperature 97.5 F L Pulse Rate 76 60 Respiratory 20 18 Rate Blood Pressure 148/90 112/65 O2 Sat by Pulse 98 100 Oximetry Medical Decision Making - Medical Decision Making Upon arrival patient was placed into room 22. A thorough history and physical exam was performed. IV access was established patient is given 15 mg of Toradol and 4 mg of Zofran. Laboratory studies are conducted and reviewed which reveal white count of 14.6. Urinalysis is negative for . Positive for blood. Urine is positive for blood, 23 white blood cells and occasional bacteria. Recommended treatment for UTI. Ultrasound is performed which demonstrates no acute findings. Patient is reevaluated and has marked improvement in her symptoms. Did discuss diagnosis, differential treatment options. She will be discharged home on Keflex for her possible UTI, ponstel for menstrual cramping and Zofran for nausea. She is to follow-up with her primary care doctor and [facility] AND WELLNESS COACH for further evaluation return for any new or worsening symptoms. Patient agreed and was discharged home in stable condition - Lab Data Result diagrams: 02/13/22 12:57 02/13/22 12:57 Lab Results 02/13/22 02/13/22 02/13/22 Range/Units 12:57 12:57 12:57 WBC 14.6 H (3.8-10.6) k/uL RBC 4.48 (3.80-5.40) m/uL Hgb 13.7 (11.4-16.0) gm/dL Hct 42.6 (34.0-46.0) % MCV 95.1 (80.0-100.0) fL MCH 30.6 (25.0-35.0) pg MCHC 32.1 (31.0-37.0) g/dL RDW 12.4 (11.5-15.5) % Plt Count 330 (150-450) k/uL MPV 8.3 Neutrophils % 63 % Lymphocytes % 27 % Monocytes % 5 % Eosinophils % 2 % Basophils % 0 % Neutrophils # 9.3 H (1.3-7.7) k/uL Lymphocytes # 4.0 (1.0-4.8) k/uL Monocytes # 0.8 (0-1.0) k/uL Eosinophils # 0.2 (0-0.7) k/uL Basophils # 0.1 (0-0.2) k/uL Sodium (137-145) mmol/L Potassium (3.5-5.1) mmol/L Chloride (98-107) mmol/L Carbon Dioxide (22-30) mmol/L Anion Gap mmol/L BUN (7-17) mg/dL Creatinine (0.52-1.04) mg/dL Est GFR (CKD-EPI)AfAm (>60 ml/min/1.73 sqM) Est GFR (CKD-EPI)NonAf (>60 ml/min/1.73 sqM) Glucose (74-99) mg/dL Calcium (8.4-10.2) mg/dL Total Bilirubin (0.2-1.3) mg/dL AST (14-36) U/L ALT (4-34) U/L Alkaline Phosphatase (38-126) U/L Total Protein (6.3-8.2) g/dL Albumin (3.5-5.0) g/dL Lipase (23-300) U/L Urine Color Yellow Urine Appearance Clear (Clear) Urine pH 5.5 (5.0-8.0) Ur Specific [place] 1.020 (1.001-1.035) Urine Protein Trace H (Negative) Urine Glucose (UA) Negative (Negative) Urine Ketones Negative (Negative) Urine Blood Large H (Negative) Urine Nitrite Negative (Negative) Urine Bilirubin Negative (Negative) Urine Urobilinogen <2.0 (<2.0) mg/dL Ur Leukocyte Esterase Trace H (Negative) Urine RBC >182 H (0-5) /hpf Urine WBC 23 H (0-5) /hpf Ur Squamous Epith Cells 2 (0-4) /hpf Urine Bacteria Occasional H (None) /hpf Urine Mucus Rare H (None) /hpf Urine HCG, Qual Not Detected (Not Detectd) 02/13/22 Range/Units 12:57 WBC (3.8-10.6) k/uL RBC (3.80-5.40) m/uL Hgb (11.4-16.0) gm/dL Hct (34.0-46.0) % MCV (80.0-100.0) fL MCH (25.0-35.0) pg MCHC (31.0-37.0) g/dL RDW (11.5-15.5) % Plt Count (150-450) k/uL MPV Neutrophils % % Lymphocytes % % Monocytes % % Eosinophils % % Basophils % % Neutrophils # (1.3-7.7) k/uL Lymphocytes # (1.0-4.8) k/uL Monocytes # (0-1.0) k/uL Eosinophils # (0-0.7) k/uL Basophils # (0-0.2) k/uL Sodium 139 (137-145) mmol/L Potassium 3.6 (3.5-5.1) mmol/L Chloride 106 (98-107) mmol/L Carbon Dioxide 21 L (22-30) mmol/L Anion Gap 12 mmol/L BUN 9 (7-17) mg/dL Creatinine 0.57 (0.52-1.04) mg/dL Est GFR (CKD-EPI)AfAm >90 (>60 ml/min/1.73 sqM) Est GFR (CKD-EPI)NonAf >90 (>60 ml/min/1.73 sqM) Glucose 109 H (74-99) mg/dL Calcium 9.9 (8.4-10.2) mg/dL Total Bilirubin 0.5 (0.2-1.3) mg/dL AST 22 (14-36) U/L ALT 17 (4-34) U/L Alkaline Phosphatase 54 (38-126) U/L Total Protein 7.8 (6.3-8.2) g/dL Albumin 4.7 (3.5-5.0) g/dL Lipase 60 (23-300) U/L Urine Color Urine Appearance (Clear) Urine pH (5.0-8.0) Ur Specific [place] (1.001-1.035) Urine Protein (Negative) Urine Glucose (UA) (Negative) Urine Ketones (Negative) Urine Blood (Negative) Urine Nitrite (Negative) Urine Bilirubin (Negative) Urine Urobilinogen (<2.0) mg/dL Ur Leukocyte Esterase (Negative) Urine RBC (0-5) /hpf Urine WBC (0-5) /hpf Ur Squamous Epith Cells (0-4) /hpf Urine Bacteria (None) /hpf Urine Mucus (None) /hpf Urine HCG, Qual (Not Detectd) Disposition Clinical Impression: Suprapubic pain, Abnormal urinalysis, Menorrhagia Disposition: HOME SELF-CARE Condition: Stable Instructions (If sedation given, give patient instructions): Pelvic Pain in Women (ED) Additional Instructions: Take medication as directed. Follow up with your HEALTH AND WELLNESS COACH for further evaluation and return for any new or worsening symptoms Prescriptions: Cephalexin [Keflex] 500 mg PO BID 1 Days #14 cap Mefenamic Acid 250 mg PO Q6HR PRN #30 cap PRN Reason: Pain Ondansetron Odt [Zofran Odt] 4 mg PO Q8HR PRN #20 tab PRN Reason: Nausea Is patient prescribed a controlled substance at d/c from ED?: No Referrals: Liya Galvin DO [Doctor of Osteopathic Medicine] - 1-2 days Time of Disposition: 14:33
[2022-02-13 13:42] LABS: Appearance,Urine Clear (Clear); Bacteria,Urine Occasional /hpf; Bilirubin,Urine Negative (Negative); Blood,Urine Large (Negative); Color,Urine Yellow; Glucose,Urine (UA) Negative (Negative); Ketones,Urine Negative (Negative); Leukocyte Esterase,Urine Trace (Negative); Mucus,Urine Rare /hpf; Nitrite,Urine Negative (Negative); PH, Urine 5.5 (5.0-8.0); Protein,Urine Trace (Negative); RBC,Urine >182 /hpf (0-5); Squamous Epithelial Cell,Urine 2 /hpf (0-4); Urobilinogen,Urine <2.0 mg/dL (<2.0); WBC,Urine 23 /hpf (0-5)
--- NOTE | 2022-02-13 13:58 | US ---
EXAMINATION TYPE: US transvaginal DATE OF EXAM: 02/13/2022 COMPARISON: NONE CLINICAL HISTORY: vag bleed, severe pelvic pain. TECHNIQUE: Transvaginal (TV). Date of LMP: 02-12-22 EXAM MEASUREMENTS: Uterus: 6.7 x 3.4 x 4.1 cm Endometrial Stripe: 1.0 cm Right Ovary: 2.8 x 1.5 x 2.3cm Left Ovary: 2.9 x 1.8 x 1.7 cm 1. Uterus: Anteverted wnl 2. Endometrium: wnl 3. Right Ovary: wnl 4. Left Ovary: wnl Spectral, color and waveform doppler imaging shows good arterial and venous flow within the ovaries ; there is no evidence for ovarian torsion. 5. Bilateral Adnexa: wnl 6. Posterior cul-de-sac: wnl IMPRESSION: 1. Normal pelvic ultrasound. Follow-up can be performed as clinically indicated
[2022-02-13 14:53] VITALS: BP 112/65; PULSE 60; RESP 18
== END 2022-02-13 14:53 | disposition home or self-care (01) ==
LOC: EC 12:12
DX: N92.0 Excessive and frequent menstruation with regular cycle (principal); R10.30 Lower abdominal pain, unspecified; R82.90 Unspecified abnormal findings in urine; E07.9 Disorder of thyroid, unspecified; F12.90 Cannabis use, unspecified, uncomplicated; Z88.0 Allergy status to penicillin; Z88.2 Allergy status to sulfonamides; Z79.890 Hormone replacement therapy
CPT/HCPCS: 36415; 80053; 83690; 85025; 81001; 81025; 87086; 93975; 76830; 99284; 96374; 96375; J2405; J1885

== ENCOUNTER 2023-02-19 08:05 | Emergency (ER) | payer BC ==
[2023-02-19 08:21] VITALS: RESP 18
[2023-02-19] MEDS ORDERED: SODIUM CHLORIDE 0.9% 1,000 ML IV STA (08:33)
[2023-02-19] MEDS ORDERED: ONDANSETRON 4 MG/2 ML VIAL IVP STA (08:33)
[2023-02-19] MEDS ORDERED: MORPHINE SULFATE 2 MG/ML SYRINGE IVP STA (08:33)
[2023-02-19] MEDS ORDERED: KETOROLAC 15 MG/ML 1 ML VIAL IVP STA ×2 (08:33→11:22)
--- NOTE | 2023-02-19 08:43 | ED ---
Back Pain HPI - General Chief Complaint: Back Pain/Injury Stated Complaint: kidney stone Time Seen by Provider: 02/19/23 08:23 Source: patient, RN notes reviewed Mode of arrival: ambulatory Limitations: no limitations - History of Present Illness Initial Comments: This is a 27-year-old female who presents to the emergency department for concerns of a kidney stone. Patient states that she was woken up from her sleep by right flank pain wrapping around into the abdomen. States that this feels like the last time that she had a kidney stone. Believes that this was about a year ago. She was able to pass this on her own. She has urinary urgency but no burning. Also states that she feels nauseous but has not had any vomiting. Denies any fevers, chills, sore throat, cough, dyspnea, chest pain, palpitations, vomiting, diarrhea, or headaches. MD Complaint: back pain - Related Data Previous Rx's Medication Instructions Recorded Ibuprofen [Motrin] 600 mg PO Q8HR PRN #20 tab 09/16/20 Tamsulosin [Flomax] 0.4 mg PO DAILY #7 cap 09/16/20 Cephalexin [Keflex] 500 mg PO BID 1 Days #14 cap 02/13/22 Mefenamic Acid 250 mg PO Q6HR PRN #30 cap 02/13/22 Ondansetron Odt [Zofran Odt] 4 mg PO Q8HR PRN #20 tab 02/13/22 Cephalexin [Keflex] 500 mg PO Q6HR 7 Days #28 cap 02/19/23 Ketorolac [Toradol] 10 mg PO Q6HR PRN #15 tab 02/19/23 Ondansetron Odt [Zofran Odt] 4 mg PO Q8HR PRN #20 tab 02/19/23 Tamsulosin [Flomax] 0.4 mg PO DAILY 7 Days #7 cap 02/19/23 Allergies Allergy/AdvReac Type Severity Reaction Status Date / Time Penicillins Allergy Unknown Verified 02/19/23 08:21 Sulfa (Sulfonamide Allergy Unknown Verified 02/19/23 08:21 Antibiotics) Review of Systems ROS Statement: Those systems with pertinent positive or pertinent negative responses have been documented in the HPI. ROS Other: All systems not noted in ROS Statement are negative. Past Medical History Past Medical History: Thyroid Disorder Additional Past Medical History / Comment(s): kidney stones History of Any Multi-Drug Resistant Organisms: None Reported Past Surgical History: No Surgical Hx Reported Past Psychological History: No Psychological Hx Reported Smoking Status: Never smoker Past Alcohol Use History: None Reported Past Drug Use History: None Reported, Marijuana General Exam Limitations: no limitations General appearance: alert, in distress Head exam: Present: atraumatic, normocephalic, normal inspection Respiratory exam: Present: normal lung sounds bilaterally. Absent: respiratory distress, wheezes, rales, rhonchi, stridor Cardiovascular Exam: Present: regular rate, normal rhythm, normal heart sounds. Absent: systolic murmur, diastolic murmur, rubs, gallop, clicks GI/Abdominal exam: Present: soft, tenderness (Right lower quadrant), normal bowel sounds. Absent: distended Back exam: Present: CVA tenderness (R). Absent: CVA tenderness (L) Neurological exam: Present: alert, oriented X3, CN II-XII intact Psychiatric exam: Present: normal affect, normal mood Skin exam: Present: warm, dry, intact, normal color. Absent: rash Course Vital Signs 02/19/23 02/19/23 02/19/23 08:18 09:04 11:43 Temperature 97.9 F 98.2 F Pulse Rate 71 76 Respiratory 18 18 Rate Blood Pressure 124/79 102/76 O2 Sat by Pulse 100 98 Oximetry Medical Decision Making - Medical Decision Making This is a 27-year-old female who presents to the emergency department for right flank pain. Was pt. sent in by a medical professional or institution? @ -No Did you speak to anyone other than the patient for history? @ -No Did you review nursing and triage notes? @ -Yes, and I agree, it is accurate with regards to the patient's symptoms. Were old charts reviewed? @ -No Differential Diagnosis? @ -Differential Flank Pain: UTI, pyelonephritis, kidney stone, musculoskeletal, pancreatitis, cholecystitis, this is not meant to be an all-inclusive list. EKG interpreted by me (3pts min.)? @ -Not obtained X-rays interpreted by me (1pt min.)? @ -Not obtained CT interpreted by me (1pt min.)? @ -Computed tomography scan of the abdomen and pelvis obtained. My interpretation identifies a right ureteral calculus. U/S interpreted by me (1pt. min.)? @ -Not obtained What testing was considered but not performed? (CT, X-rays, U/S, labs)? Why? @ -None What meds were considered but not given? Why? @ -None Did you discuss the management of the patient with other professionals? @ -No Did you reconcile home meds? @ -No Was smoking cessation discussed for >3mins.? @ -No Was critical care preformed (if so, how long)? @ -No Were there social determinants of health that impacted care today? How? (Homelessness, low income, unemployed, alcoholism, drug addiction, transpo rtation, low edu. Level, literacy, decrease access to med. care, long-term, rehab)? @ -No Was there de-escalation of care discussed even if they declined? (Discuss DNR or withdrawal of care, Hospice)? @ -No What co-morbidities impacted this encounter? (DM, HTN, Smoking, COPD, CAD, Cancer, CVA, Hep., AIDS, mental health diagnosis, sleep apnea, morbid obesity)? @ -None Was patient admitted / discharged? @ -Discharged. Lab work obtained revealing leukocytosis and a mildly elevated lactic acid. Urinalysis is fairly contaminated, but does reveal blood. Patient was given IV fluids, Toradol, morphine, and Zofran. Computed tomography scan of the abdomen and pelvis identified what is believed to be a right ureteral calculus at the UVJ, however multiple phleboliths did make adequate identification somewhat difficult. They did identify mild prominence of the right renal collecting system and proximal ureter. Given the patient's symptoms, urinalysis results, and history of kidney stones, this is most likely a ureteral calculus despite the CT not being absolutely certain. Her symptoms were well controlled in the emergency department. Patient overall felt stable for discharge home. While the urine is contaminated, we will go ahead and treat the patient for a UTI as well given the leukocytosis and elevated lactic acid. She does also have WBCs in the urine. She was given a dose of ceftriaxone in the emergency department. Prescription for Keflex, Toradol, Zofran, and Flomax provided with dosing instructions reviewed. Patient is instructed to take the Toradol with Tylenol if needed and avoid any other vlse-dsd-trelslj anti- inflammatories such as ibuprofen with the Toradol. She was also sent home with a urine strainer and given follow-up with urology. Undiagnosed new problem with uncertain prognosis? @ -None Drug Therapy requiring intensive monitoring for toxicity (Heparin, Nitro, Insulin, Cardizem)? @ -None Were any procedures done? @ -None Diagnosis/symptom? @ -Right ureteral calculus, UTI Acute, or Chronic, or Acute on Chronic? @ -Acute Uncomplicated (without systemic symptoms) or Complicated (systemic symptoms)? @ -Uncomplicated Side effects of treatment? @ -None Exacerbation, Progression, or Severe Exacerbation] @ -Not applicable Poses a threat to life or bodily function? @ -No Return precautions reviewed in depth, the patient is instructed to return to the emergency department with any new, worsening, or concerning symptoms. Patient verbalized understanding. This case was discussed in detail with the attending ED physician, Dr. Early. Presentation, findings, and treatment plan discussed in detail as well. - Lab Data Result diagrams: 02/19/23 08:39 02/19/23 08:39 Lab Results 02/19/23 02/19/23 02/19/23 Range/Units 08:39 08:39 08:39 WBC 11.8 H (3.8-10.6) k/uL RBC 4.60 (3.80-5.40) m/uL Hgb 14.4 (11.4-16.0) gm/dL Hct 43.3 (34.0-46.0) % MCV 94.0 (80.0-100.0) fL MCH 31.3 (25.0-35.0) pg MCHC 33.3 (31.0-37.0) g/dL RDW 12.6 (11.5-15.5) % Plt Count 284 (150-450) k/uL MPV 7.9 Neutrophils % 68 % Lymphocytes % 23 % Monocytes % 4 % Eosinophils % 3 % Basophils % 0 % Neutrophils # 8.1 H (1.3-7.7) k/uL Lymphocytes # 2.7 (1.0-4.8) k/uL Monocytes # 0.5 (0-1.0) k/uL Eosinophils # 0.3 (0-0.7) k/uL Basophils # 0.0 (0-0.2) k/uL Sodium (137-145) mmol/L Potassium (3.5-5.1) mmol/L Chloride (98-107) mmol/L Carbon Dioxide (22-30) mmol/L Anion Gap mmol/L BUN (7-17) mg/dL Creatinine (0.52-1.04) mg/dL Est GFR (CKD-EPI)AfAm (>60 ml/min/1.73 sqM) Est GFR (CKD-EPI)NonAf (>60 ml/min/1.73 sqM) Glucose (74-99) mg/dL Lactic Ac Sepsis Rflx Plasma Lactic Acid Ronal (0.7-2.0) mmol/L Calcium (8.4-10.2) mg/dL Total Bilirubin (0.2-1.3) mg/dL AST (14-36) U/L ALT (4-34) U/L Alkaline Phosphatase (38-126) U/L Total Protein (6.3-8.2) g/dL Albumin (3.5-5.0) g/dL Urine Color Light Red Urine Appearance Turbid H (Clear) Urine pH 8.5 H (5.0-8.0) Ur Specific Conway 1.022 (1.001-1.035) Urine Protein Trace H (Negative) Urine Glucose (UA) Negative (Negative) Urine Ketones Negative (Negative) Urine Blood Trace H (Negative) Urine Nitrite Negative (Negative) Urine Bilirubin Negative (Negative) Urine Urobilinogen <2.0 (<2.0) mg/dL Ur Leukocyte Esterase Small H (Negative) Urine RBC 17 H (0-5) /hpf Urine WBC 29 H (0-5) /hpf Ur Squamous Epith Cells 10 H (0-4) /hpf Amorphous Sediment Moderate H (None) /hpf Urine Bacteria Rare H (None) /hpf Urine Mucus Rare H (None) /hpf Urine HCG, Qual Not Detected (Not Detectd) 02/19/23 02/19/23 02/19/23 Range/Units 08:39 08:39 09:21 WBC (3.8-10.6) k/uL RBC (3.80-5.40) m/uL Hgb (11.4-16.0) gm/dL Hct (34.0-46.0) % MCV (80.0-100.0) fL MCH (25.0-35.0) pg MCHC (31.0-37.0) g/dL RDW (11.5-15.5) % Plt Count (150-450) k/uL MPV Neutrophils % % Lymphocytes % % Monocytes % % Eosinophils % % Basophils % % Neutrophils # (1.3-7.7) k/uL Lymphocytes # (1.0-4.8) k/uL Monocytes # (0-1.0) k/uL Eosinophils # (0-0.7) k/uL Basophils # (0-0.2) k/uL Sodium 139 (137-145) mmol/L Potassium 4.3 (3.5-5.1) mmol/L Chloride 108 H (98-107) mmol/L Carbon Dioxide 22 (22-30) mmol/L Anion Gap 9 mmol/L BUN 10 (7-17) mg/dL Creatinine 0.59 (0.52-1.04) mg/dL Est GFR (CKD-EPI)AfAm >90 (>60 ml/min/1.73 sqM) Est GFR (CKD-EPI)NonAf >90 (>60 ml/min/1.73 sqM) Glucose 119 H (74-99) mg/dL Lactic Ac Sepsis Rflx Y Plasma Lactic Acid Ronal 2.1 H* (0.7-2.0) mmol/L Calcium 9.3 (8.4-10.2) mg/dL Total Bilirubin 0.5 (0.2-1.3) mg/dL AST 23 (14-36) U/L ALT 21 (4-34) U/L Alkaline Phosphatase 60 (38-126) U/L Total Protein 7.7 (6.3-8.2) g/dL Albumin 4.5 (3.5-5.0) g/dL Urine Color Urine Appearance (Clear) Urine pH (5.0-8.0) Ur Specific Conway (1.001-1.035) Urine Protein (Negative) Urine Glucose (UA) (Negative) Urine Ketones (Negative) Urine Blood (Negative) Urine Nitrite (Negative) Urine Bilirubin (Negative) Urine Urobilinogen (<2.0) mg/dL Ur Leukocyte Esterase (Negative) Urine RBC (0-5) /hpf Urine WBC (0-5) /hpf Ur Squamous Epith Cells (0-4) /hpf Amorphous Sediment (None) /hpf Urine Bacteria (None) /hpf Urine Mucus (None) /hpf Urine HCG, Qual (Not Detectd) - Radiology Data Radiology results: report reviewed, image reviewed Disposition Clinical Impression: Right ureteral calculus, UTI (urinary tract infection) Disposition: HOME SELF-CARE Instructions (If sedation given, give patient instructions): Ureteral Stones (ED) Additional Instructions: Return to the emergency department with any new, worsening, or concerning symptoms. Take the antibiotic as prescribed for 7 days. Take the Toradol with Tylenol as needed for pain relief. Do not take ibuprofen or any other vzyo-scq-kxiarss anti-inflammatories with the Toradol. The Zofran can be used up to every 8 hours as needed for nausea and vomiting. Take the Flomax daily for 7 days. Contact urology as listed below for a follow-up appointment. Follow up with your primary care provider in 1-2 days. Prescriptions: Tamsulosin [Flomax] 0.4 mg PO DAILY 7 Days #7 cap Cephalexin [Keflex] 500 mg PO Q6HR 7 Days #28 cap Ketorolac [Toradol] 10 mg PO Q6HR PRN #15 tab PRN Reason: Pain Ondansetron Odt [Zofran Odt] 4 mg PO Q8HR PRN #20 tab PRN Reason: Nausea And Vomiting Is patient prescribed a controlled substance at d/c from ED?: No Referrals: None,Stated [Primary Care Provider] - 1-2 days Amos Espana MD [STAFF PHYSICIAN] - 1-2 days
[2023-02-19 09:00] LABS: Basophils % (A) 0 %; Eosinophils # (A) 0.3 k/uL (0-0.7); Eosinophils % (A) 3 %; HCT 43.3 % (34.0-46.0); HGB 14.4 gm/dL (11.4-16.0); Lymphocytes # (A) 2.7 k/uL (1.0-4.8); Lymphocytes % (A) 23 %; MCH 31.3 pg (25.0-35.0); MCHC 33.3 g/dL (31.0-37.0); Mean Platelet Volume 7.9; Monocytes # (A) 0.5 k/uL (0-1.0); Monocytes % (A) 4 %; Neutrophils # (A) 8.1 k/uL (1.3-7.7); Neutrophils % (A) 68 %; Platelet Count 284 k/uL (150-450); RDW 12.6 % (11.5-15.5); WBC 11.8 k/uL (3.8-10.6)
[2023-02-19 09:07] LABS: Amorphous Sediment,Urine Moderate /hpf; Appearance,Urine Turbid (Clear); Bacteria,Urine Rare /hpf; Bilirubin,Urine Negative (Negative); Blood,Urine Trace (Negative); Color,Urine Light Red; Glucose,Urine (UA) Negative (Negative); Ketones,Urine Negative (Negative); Leukocyte Esterase,Urine Small (Negative); Mucus,Urine Rare /hpf; Nitrite,Urine Negative (Negative); PH, Urine 8.5 (5.0-8.0); Protein,Urine Trace (Negative); RBC,Urine 17 /hpf (0-5); Specific Gravity,Urine 1.022 (1.001-1.035); Squamous Epithelial Cell,Urine 10 /hpf (0-4); Urobilinogen,Urine <2.0 mg/dL (<2.0); WBC,Urine 29 /hpf (0-5)
[2023-02-19 09:08] LABS: ALT 21 U/L (4-34); AST 23 U/L (14-36); African American GFR (CKD) >90 (>60 ml/min/1.73 sqM); Albumin 4.5 g/dL (3.5-5.0); Alkaline Phosphatase 60 U/L (38-126); Anion Gap 9 mmol/L; Blood Urea Nitrogen 10 mg/dL (7-17); Calcium 9.3 mg/dL (8.4-10.2); Carbon Dioxide 22 mmol/L (22-30); Chloride 108 mmol/L (98-107); Glucose 119 mg/dL (74-99); Non-African American GFR(CKD) >90 (>60 ml/min/1.73 sqM); Potassium 4.3 mmol/L (3.5-5.1); Sodium 139 mmol/L (137-145); Total Bilirubin 0.5 mg/dL (0.2-1.3); Total Protein 7.7 g/dL (6.3-8.2)
--- NOTE | 2023-02-19 10:04 | CT ---
EXAMINATION TYPE: CT abdomen pelvis wo con DATE OF EXAM: 02/19/2023 COMPARISON: 09/16/2020 INDICATION: Right flank pain, history of stones DLP: 427.7 mGycm, Automated exposure control for dose reduction was used. CONTRAST: 0 mL of Isovue 300. Study performed without Oral Contrast TECHNIQUE: Axial images were obtained from above the diaphragm to the pubic rami in the axial plane a t 5 mm thick sections. Reconstructed images are reviewed on the computer in the coronal plane. FINDINGS: Limited CT sections are obtained the lung bases. The lung bases are clear. CT ABDOMEN: Liver: Normal Spleen: Normal Pancreas: Normal Adrenal glands: The adrenal glands are normal. Gallbladder: Normal Kidneys: No masses are evident.No cysts are present. There is mild right hydroureter. Minimal right renal collecting system prominence may be present. At the distal right ureteral vesicle junction reg ion there may be punctate calcification measuring 0.2 cm. Hydroureter extending to this level is not clearly evident. Multiple phleboliths are within the pelvis. This may make identification of distal u reteral stones difficult bilaterally. There are multiple punctate nonobstructing renal stones present bilaterally. Additional larger nonobstructing renal stones are present including a mid to upper left renal calcification measuring 0.2 cm and 0.3 and 0.4 cm upper mid right renal stones, a 0.4 cm nonob structing mid right renal stone and a 0.3 cm inferior to mid right renal stone. A renal stone may be in the anterior mid inferior pole right kidney measuring 0.5 cm. Aorta: Normal Inferior vena cava: Normal. CT PELVIS: Loops of bowel within the abdomen and pelvis are normal. This study is without oral contrast limi ting bowel evaluation. Fecal debris is within the colon. Appendix: Normal as visualized. Urinary bladder: Normal. Genitourinary structures: Uterus is normal. Adnexa appears somewhat full. Suspicious cysts or masses however are not evident. Osseous structures: No suspicious lytic or sclerotic lesions. IMPRESSIONS: 1. Multiple nonobstructing bilateral renal stones. 2. There may be a punctate 0.2 cm distal right ureteral vesicle junction stone. There is mild promine nce of the right renal collecting system and proximal ureter. Distal hydroureter however is not clear ly identified.
[2023-02-19] MEDS ORDERED: METOCLOPRAMIDE 5 MG/ML 2 ML VIAL IVP STA (10:20)
[2023-02-19] MEDS ORDERED: HYDROmorphone 1 MG/ML 1 ML SYRINGE IVP STA (10:20)
[2023-02-19] MEDS ORDERED: cefTRIAXone IN SWFI 1,000 MG/10 ML SYRINGE IVP STA (10:21)
[2023-02-19] MEDS ORDERED: ACET/COD 300 MG/30 MG STARTER PACK 6 TAB BTL PO STA (11:22)
[2023-02-19 11:44] VITALS: BP 102/76; PULSE 76; TEMP 98.2
== END 2023-02-19 11:44 | disposition home or self-care (01) ==
LOC: EC 08:05
DX: N39.0 Urinary tract infection, site not specified (principal); N20.2 Calculus of kidney with calculus of ureter; Z88.0 Allergy status to penicillin; Z88.2 Allergy status to sulfonamides
CPT/HCPCS: 36415; 80053; 83605; 85025; 81001; 81025; 87086; 74176; 99284; 96374; 96375 ×5; 96376; 96361 ×3; J2765; J2405; J0696; J2270; J1170; J1885

== ENCOUNTER 2023-11-29 16:48 | Outpatient (CLI) | payer BC ==
[2023-11-29 17:39] LABS: Appearance,Urine Clear (Clear); Bilirubin,Urine Negative (Negative); Blood,Urine Negative (Negative); Color,Urine Colorless; Glucose,Urine (UA) Negative (Negative); Ketones,Urine Negative (Negative); Leukocyte Esterase,Urine Trace (Negative); Mucus,Urine Rare /hpf; Nitrite,Urine Negative (Negative); PH, Urine 6.5 (5.0-8.0); Protein,Urine Negative (Negative); RBC,Urine 1 /hpf (0-5); Specific Gravity,Urine 1.008 (1.001-1.035); Squamous Epithelial Cell,Urine 4 /hpf (0-4); Urobilinogen,Urine <2.0 mg/dL (<2.0); WBC,Urine 5 /hpf (0-5)
[2023-11-29 17:46] VITALS: RESP 16
[2023-11-29 19:18] VITALS: BP 136/86; PULSE 106; TEMP 97.9
--- NOTE | 2023-11-30 09:10 | P.MSEPDOC ---
Presenting Problems - Arrival Data Date of Arrival on Unit: 11/29/23 Time of Arrival on Unit: 16:50 Mode of Transport: Ambulatory - Complaint OB-Reason for Admission/Chief Complaint: Other Comment: pt arrived wanting to have her B/P checked. pt states she seen Dr Wilkins yesterday at the office and the tech took her B/P and it was 120/80. pt retook it at home a couple of times and got a higher reading, ot denies any H/A blurred vision or epigastric pain or any comlaints. pt having mild contractions but denies feeling them at this time reactive NST U/A obtained and sent to lab abd urine negative for protein. serial of B/P done with 136/86, 134/86, 134/87 pt sent home with instructions Medical History - Information : 1 Para: 0 Term: 0 : 0 Abortions: Spontaneous or Elective: 0 Number of Living Children: 0 - Gestational Age Gestational Age by ANTONIO (wks/days): 38 Weeks and 1 Days Review of Systems - Review of Systems Constitutional: No problems Breast: No problems ENT: No problems Cardiovascular: No problems Respiratory: No problems Gastrointestinal: No problems Genitourinary: No problems Musculoskeletal: No problems Neurological: No problems Skin: No problems Vital Signs - Temperature Temperature: 97.9 F Temperature Source: Oral - Pulse Right Brachial Pulse Rate: 106 Pulse Assessment Method: Auscultation - Respirations Respiratory Rate: 16 Oxygen Delivery Method: Room Air O2 Sat by Pulse Oximetry: 97 - Blood Pressure Right Arm Blood Pressure: 136/86 Blood Pressure Mean: 102 Blood Pressure Source: Automatic Cuff Medical Screen Scoring - Assessment - Baby A Baseline FHR: 120 Heart Rate - NICHD Category: Category I (Normal) NST: Reactive Physician Notification - Physician Notified Physician Notified Date: 11/29/23 Physician Notified Time: 18:08 New Order Received: Yes - Notification Comment Comment: may discharge to home with instructions Maternal Triage Index - Non-Urgent/Priority 4 Non-Urgent Priority 4: Yes Criteria Met for Priority 4: serial of b/p taken urine negative for protein no c/o H/A blurred vision or epigastric pain reflex plus 1 Disposition - Disposition OB Disposition: Discharge to home Discharge Date: 11/29/23 Discharge Time: 18:23 I agree with the RN Medical Screening Exam: Yes Case reviewed; plan agreed upon as documented in EMR&OBIX.: Yes Diagnosis: OTHER MIXED ANXIETY DISORDERS
== END 2023-11-29 18:23 | disposition home or self-care (01) ==
LOC: FBPOP 16:48
PROVIDERS: ATTEND Obstetrics & Gynecology
DX: O99.343 Other mental disorders complicating pregnancy, third trimester (principal); Z3A.38 38 weeks gestation of pregnancy; Z88.0 Allergy status to penicillin; Z88.2 Allergy status to sulfonamides
CPT/HCPCS: 59025; 81001; 99213

== ENCOUNTER 2023-12-01 21:18 | Inpatient (IN) | payer BC ==
[2023-12-01] MEDS ORDERED: CARBOPROST TROMETHAMINE 250 MCG/ML 1 ML AMP IM PRN (22:05)
[2023-12-01] MEDS ORDERED: TERBUTALINE 1 MG/ML VIAL SQ PRN (22:05)
[2023-12-01] MEDS ORDERED: OXYTOCIN 10 UNIT/ML 1 ML VIAL IM PRN (22:05)
[2023-12-01] MEDS ORDERED: TRANEXAMIC 1,000 MG/100ML-NACL 1,000 MG in EMPTY BAG 1 BAG IV PRN (22:05)
[2023-12-01] MEDS ORDERED: miSOPROStoL 200 MCG TAB PO PRN (22:05)
[2023-12-01] MEDS ORDERED: METHYLERGONOVINE 0.2 MG/ML 1 ML AMP IM PRN (22:05)
[2023-12-01] MEDS: LACTATED RINGERS 1,000 ML IV SCH (22:15)
[2023-12-01 22:39] LABS: Basophils % (A) 0 %; Eosinophils # (A) 0.1 k/uL (0-0.7); Eosinophils % (A) 1 %; HCT 34.5 % (34.0-46.0); HGB 11.3 gm/dL (11.4-16.0); Lymphocytes # (A) 1.7 k/uL (1.0-4.8); Lymphocytes % (A) 16 %; MCH 29.2 pg (25.0-35.0); MCHC 32.8 g/dL (31.0-37.0); MCV 89.2 fL (80.0-100.0); Mean Platelet Volume 10.4; Monocytes # (A) 0.7 k/uL (0-1.0); Monocytes % (A) 6 %; Neutrophils # (A) 7.9 k/uL (1.3-7.7); Neutrophils % (A) 73 %; Platelet Count 202 k/uL (150-450); RBC 3.87 m/uL (3.80-5.40); RDW 14.3 % (11.5-15.5); WBC 10.7 k/uL (3.8-10.6)
[2023-12-01] MEDS: OXYTOCIN 30 UNITS/500 ML NS 30 UNIT in SALINE 1 500ML.BAG IV SCH (23:08)
[2023-12-02] MEDS ORDERED: fentaNYL (PF) 50 MCG/ML 5 ML AMP ONE (00:29)
[2023-12-02] MEDS ORDERED: SODIUM CHLORIDE 0.9% 250 ML BAG ONE (00:29)
[2023-12-02] MEDS ORDERED: ROPIVACAINE 5 MG/ML 30 ML VIAL ONE (00:29)
[2023-12-02] MEDS ORDERED: diphenhydrAMINE 25 MG CAP PO PRN (03:36)
[2023-12-02] MEDS ORDERED: diphenhydrAMINE 50 MG CAP PO PRN (03:36)
[2023-12-02] MEDS ORDERED: SIMETHICONE 80 MG CHEWABLE PO PRN (03:36)
[2023-12-02] MEDS ORDERED: diphenhydrAMINE 50 MG/ML 1 ML VIAL IVP PRN ×2 (03:36)
[2023-12-02] MEDS ORDERED: BENZOCAINE/MENTHOL SPRAY 1 GM/SPRAY AEROSOL TOPICAL PRN (03:36)
[2023-12-02] MEDS ORDERED: LANOLIN CREAM 1 GM TUBE TOPICAL PRN (03:36)
[2023-12-02] MEDS ORDERED: HYDROCORTISONE 2.5% RECTAL CREAM 30 GM TUBE RECTAL PRN (03:36)
[2023-12-02] MEDS ORDERED: ZOLPIDEM 5 MG TAB PO PRN (03:36)
[2023-12-02] MEDS: LIDOCAINE 0.5% (PF) 5 MG/ML (50 ML SDV) SQ PRN (03:44)
[2023-12-02] MEDS: IBUPROFEN 600 MG TAB PO PRN (07:32)
[2023-12-02] MEDS: SENNOSIDES-DOCUSATE SODIUM 1 EACH TAB PO SCH (07:32)
--- NOTE | 2023-12-02 09:32 | P.HPOB ---
History of Present Illness H&P Date: 12/02/23 Chief Complaint: SROM at 2030 on 11/30 28 year old presents at 38 weeks 3 days with SROM at 2030 on 11/30. She presented about an hour later and her cervix was 3-4/70/-2. She was rojelio irregularly. heart tones 135 with moderate variability and reactive. Review of Systems All systems: negative Constitutional: Denies chills, Denies fever Eyes: denies blurred vision, denies pain Ears, nose, mouth and throat: Denies headache, Denies sore throat Cardiovascular: Denies chest pain, Denies shortness of breath Respiratory: Denies cough Gastrointestinal: Denies abdominal pain, Denies diarrhea, Denies nausea, Denies vomiting Genitourinary: Denies dysuria, Denies hematuria Musculoskeletal: Denies myalgias Integumentary: Denies pruritus, Denies rash Neurological: Denies numbness, Denies weakness Psychiatric: Denies anxiety, Denies depression Endocrine: Denies fatigue, Denies weight change Past Medical History Past Medical History: Thyroid Disorder Additional Past Medical History / Comment(s): kidney stones History of Any Multi-Drug Resistant Organisms: None Reported Past Surgical History: No Surgical Hx Reported Past Anesthesia/Blood Transfusion Reactions: No Reported Reaction Past Psychological History: No Psychological Hx Reported Smoking Status: Never smoker Past Alcohol Use History: None Reported Past Drug Use History: None Reported, Marijuana Medications and Allergies Home Medications Medication Instructions Recorded Confirmed Type Vit No.170/Iron/Folic 1 tablet PO DAILY 11/29/23 History [Dermacinrx Prenatryl Caplet] Allergies Allergy/AdvReac Type Severity Reaction Status Date / Time Penicillins Allergy Mild Itching Verified 12/01/23 21:22 Sulfa (Sulfonamide Allergy Mild Itching Verified 12/01/23 21:22 Antibiotics) Exam Osteopathic Statement: *. No significant issues noted on an osteopathic structural exam other than those noted in the History and Physical/Consult. Vital Signs Temp Pulse Resp BP Pulse Ox 12/02/23 07:40 98.4 F 117 H 16 131/80 12/02/23 05:31 118 H 18 133/73 100 12/02/23 05:16 116 H 18 135/75 100 12/02/23 05:01 112 H 18 138/73 100 12/02/23 04:46 123 H 18 137/73 100 05/18/24 04:31 115 H 18 127/68 99 12/02/23 04:16 119 H 18 137/79 99 12/02/23 04:01 124 H 20 138/82 96 12/02/23 03:46 112 H 20 132/76 12/02/23 03:31 98.7 F 125 H 22 139/73 12/01/23 21:20 97.8 F 100 18 137/82 98 Intake and Output 12/01/23 12/02/23 12/02/23 22:59 06:59 14:59 Intake Total 8.367 Output Total 520 Balance -511.633 Intake: Intake, IV Titration 8.367 Amount Oxytocin 30 Units/500 ml 8.367 Ns 30 unit In Saline 1 500ml.bag @ Per Protocol IV .Q0M CELIA Rx#:[id number] Output: Estimated Blood Loss 150 Output, Quantitative 370 Blood Loss Other: # Voids 1 Weight 86.183 kg Heart: RRR Lungs: CTAB Abdomen: soft, nontender Extremeties: neg cj's Results Result Diagrams: 12/01/23 22:14 Abnormal Lab Results - Last 24 Hours (Table) 12/01/23 Range/Units 22:14 WBC 10.7 H (3.8-10.6) k/uL Hgb 11.3 L (11.4-16.0) gm/dL Neutrophils # 7.9 H (1.3-7.7) k/uL Assessment and Plan (1) Spontaneous rupture of membranes Current Visit: Yes Status: Acute Code(s): [id number] - SNOMED Code(s): 943964244 (2) 38 weeks gestation of Current Visit: Yes Status: Acute Code(s): Z3A.38 - 38 WEEKS GESTATION OF SNOMED Code(s): 89030084 Plan: 1. admit to [facility] 2. expectant management with pitocin augmentation if necessary 3. anticipate normal vaginal delivery
--- NOTE | 2023-12-02 09:33 | P.PROBDLV ---
Vaginal Delivery Note - . Vaginal Delivery Note: 28 year old presents at 38 weeks 3 days with SROM at 2030 on 11/30. She presented about an hour later and her cervix was 3-4/70/-2. She was rojelio irregularly. heart tones 135 with moderate variability and reactive. Patient admitted and her contractions were found be adequate. She was given Pitocin augmentation. She also got an epidural and she was comfortable. Her cervix was completely dilated around 2:30. She pushed, delivered a viable female infant over intact perineum under epidural anesthesia at 3:17 AM. Head delivered OA, anterior shoulder delivered gentle downward guidance for the posterior shoulder and rest of body. Nose and mouth bulb suctioned, cord clamped and cut, placed mother's abdomen. Apgars 9, 9, weight 7 pounds 3.5 ounces. Placenta delivered spontaneously, intact with three-vessel cord at 3:19 AM. Vagina, cervix, perineum inspected. Second-degree midline laceration was repaired with 3-0 Vicryl. Estimated blood loss 150 mL. Mother and baby in stable condition.
[2023-12-02] MEDS: Rhogam IMMUNE GLOBULIN 1,500 UNIT/1 ML IM ONE (11:36)
[2023-12-02] MEDS: ACETAMINOPHEN TAB 325 MG TAB PO PRN (20:22)
[2023-12-03 04:44] LABS: Basophils % (A) 0 %; Eosinophils # (A) 0.1 k/uL (0-0.7); Eosinophils % (A) 1 %; HCT 31.5 % (34.0-46.0); HGB 9.9 gm/dL (11.4-16.0); Lymphocytes # (A) 1.6 k/uL (1.0-4.8); Lymphocytes % (A) 16 %; MCH 28.8 pg (25.0-35.0); MCHC 31.5 g/dL (31.0-37.0); MCV 91.4 fL (80.0-100.0); Mean Platelet Volume 11.1; Monocytes # (A) 0.4 k/uL (0-1.0); Monocytes % (A) 4 %; Neutrophils # (A) 7.4 k/uL (1.3-7.7); Neutrophils % (A) 75 %; Platelet Count 165 k/uL (150-450); RBC 3.45 m/uL (3.80-5.40); RDW 14.2 % (11.5-15.5); WBC 9.8 k/uL (3.8-10.6)
[2023-12-03 09:55] VITALS: BP 138/89; PULSE 102; RESP 18; TEMP 98.1
--- NOTE | 2023-12-03 10:51 | P.DS ---
Providers Date of admission: 12/01/23 21:37 Expected date of discharge: 12/03/23 Attending physician: Haley Wilkins Primary care physician: Stated None - Discharge Diagnosis(es) (1) Spontaneous rupture of membranes Current Visit: Yes Status: Resolved (2) 38 weeks gestation of Current Visit: Yes Status: Resolved (3) Status post normal vaginal delivery Current Visit: Yes Status: Acute Hospital Course: Patient presented in active labor. She underwent a normal vaginal delivery. course was uneventful. She denies nausea, vomiting, chest pain, shortness of breath or calf pain. Patient will be discharged home day #1 in stable condition to follow-up in 6 weeks. Plan - Discharge Summary New Discharge Prescriptions: New Ibuprofen [Motrin] 600 mg PO Q6HR PRN #30 tab PRN Reason: Mild Pain (Scale 1 To 3) No Action Vit No.170/Iron/Folic [Dermacinrx Prenatryl Caplet] 1 tablet PO DAILY Discharge Medication List Vit No.170/Iron/Folic [Dermacinrx Prenatryl Caplet] 1 tablet PO DAILY 11/29/23 [History] Ibuprofen [Motrin] 600 mg PO Q6HR PRN #30 tab 12/03/23 [Rx] Follow up Appointment(s)/Referral(s): Scooby Soto MD [STAFF PHYSICIAN] - 6 Weeks Discharge Disposition: HOME SELF-CARE
--- NOTE | 2023-12-04 05:44 | P.MSEPDOC ---
Presenting Problems - Arrival Data Date of Arrival on Unit: 12/01/23 Time of Arrival on Unit: 22:00 Mode of Transport: Ambulatory - Complaint OB-Reason for Admission/Chief Complaint: Rule Out SROM Comment: Pt presents with c/o SROm at home at 2029 for clear fluid, mild cramping 2/10 Medical History - Information : 1 Para: 0 Term: 0 : 0 Abortions: Spontaneous or Elective: 0 Number of Living Children: 0 - Gestational Age Gestational Age by ANTONIO (wks/days): 38 Weeks and 4 Days Review of Systems - Review of Systems Constitutional: No problems Breast: No problems ENT: No problems Cardiovascular: No problems Respiratory: No problems Gastrointestinal: No problems Genitourinary: No problems Musculoskeletal: No problems Neurological: No problems Skin: No problems Vital Signs - Temperature Temperature: 98.1 F Temperature Source: Oral - Pulse Pulse Oximetery Pulse Rate: 102 Pulse Assessment Method: Pulse Oximetry - Respirations Respiratory Rate: 18 Oxygen Delivery Method: Room Air O2 Sat by Pulse Oximetry: 96 - Blood Pressure Right Arm Blood Pressure: 138/89 Blood Pressure Mean: 105 Blood Pressure Source: Automatic Cuff Medical Screen Scoring - Cervical Exam Dilation (cm): 3.5 Effacement (%): 70 Station: -1 Membranes: Ruptured - Assessment - Baby A Baseline FHR: 150 Heart Rate - NICHD Category: Category I (Normal) NST: Reactive Physician Notification - Physician Notified Physician Notified Date: 12/01/23 Physician Notified Time: 21:50 Physician: Claudia Foster - Notification Comment Comment: Spoke with Dr. Foster, Pt of Dr. Wilkins, 38 weeks 3 days. Presents with SROM at home at 2029 for clear fluid. Grossly ruptured and positive amnisure. Cervical exam 3.5/70/-1. GBS negative, vitals stable. Cat 1 tones, reactive NST, irregular cx rating 2/10. Order to admit pt for labor, if cx not more regular in 1 hour, start pitocin Maternal Triage Index - Maternal Triage Index Presenting for scheduled procedure w/no complaint: No - Stat/Priority 1 Stat Priority 1: No - Urgent/Priority 2 Urgent Priority 2: No - Prompt/Priority 3 Prompt Priority 3: Yes Criteria Met for Priority 3: 38 weeks 3 days. Presents with SROM at home at 2030 for clear fluid. Grossly ruptured and positive amnisure. Cervical exam 3.5/70/-1. GBS negative, vitals stable. Cat 1 tones, reactive NST, irregular cx rating 10. Disposition - Disposition OB Disposition: Admit Discharge Date: 12/03/23 Discharge Time: 12:30 I agree with the RN Medical Screening Exam: Yes Case reviewed; plan agreed upon as documented in EMR&OBIX.: Yes Diagnosis: ENCOUNTER FOR FULL-TERM UNCOMPLICATED DELIVERY
== END 2023-12-03 12:30 | disposition home or self-care (01) | DRG 807 ==
LOC: FBPOP 21:18 → 4FBP 21:37
PROVIDERS: ADMIT Obstetrics & Gynecology; ATTEND Obstetrics & Gynecology Obstetrics
PROC: 10E0XZZ Delivery of Products of Conception, External Approach (ICD-10-PCS; principal; 2023-12-02)
PROC: 0KQM0ZZ Repair Perineum Muscle, Open Approach (ICD-10-PCS; 2023-12-02)
DX: O70.1 Second degree perineal laceration during delivery (principal); Z37.0 Single live birth; Z3A.38 38 weeks gestation of pregnancy; Z87.442 Personal history of urinary calculi
CPT/HCPCS: 59025; 84112; 85025; 85461; 86850; 86900; 86901; 99213